=== PATIENT | female | born 1945 | race Caucasian/White ===

== ENCOUNTER 2022-07-19 14:06 | Outpatient (CLI) | payer MEDICARE, BC | END 2022-07-19 14:07 | disposition home or self-care (01) | LOC: SCSMRI 14:06 | PROVIDERS: ATTEND Nurse Practitioner Family | DX: M54.6 Pain in thoracic spine (principal); M47.814 Spondylosis without myelopathy or radiculopathy, thoracic region; M51.34 Other intervertebral disc degeneration, thoracic region | CPT/HCPCS: 72146 ==